=== PATIENT | female | born 1985 | race Caucasian/White ===

== ENCOUNTER 2023-11-04 07:02 | Emergency (ER) | payer OTHER ==
[~2023-11-04] VITALS: Ht 167.6 cm; Wt 74.4 kg
[2023-11-04 07:07] VITALS: BP 131/108; PULSE 77; RESP 18; TEMP 97.9; O2SAT 99
[2023-11-04 07:25] VITALS: O2SAT 100
[2023-11-04] MEDS: LIDOCAINE 5% 1 EA PATCH TP STA (07:41)
[2023-11-04] MEDS: methocarbamoL 500 MG TAB PO STA (07:42)
[2023-11-04] MEDS: ACETAMINOPHEN 325 MG TAB PO ONE (07:43)
[2023-11-04] MEDS: KETOROLAC 30 MG/ML VIAL IM ONE (07:44)
[2023-11-04] MEDS ORDERED: METH-1681 PO (09:27)
[2023-11-04] MEDS ORDERED: LID5T TP (09:27)
[2023-11-04] MEDS ORDERED: PRED20TA5 PO (09:27)
[2023-11-04] MEDS ORDERED: IBUP-2213 PO (09:27)
[2023-11-04] MEDS: predniSONE 20 MG TAB PO ONE (09:39)
== END 2023-11-04 09:41 | disposition home or self-care (01) ==
LOC: MED 07:02
DX: M54.17 Radiculopathy, lumbosacral region (principal); Z79.899 Other long term (current) drug therapy; Z79.1 Long term (current) use of non-steroidal anti-inflammatories (NSAID)
CPT/HCPCS: 81002; 81025; 96372; 99284; J1885; 99283

== ENCOUNTER 2024-03-30 07:58 | Emergency (ER) | payer OTHER ==
[~2024-03-30] VITALS: Ht 170.2 cm; Wt 76.0 kg
[~2024-03-30 07:58] MED LIST: IBUP-2213 PO; LID5T TP; METH-1681 PO; PRED20TA5 PO
[2024-03-30 08:07] VITALS: BP 102/41; PULSE 60; RESP 17; TEMP 97.8; O2SAT 98
[2024-03-30] MEDS: LIDOCAINE 5% 1 EA PATCH TP ONE (09:30)
[2024-03-30] MEDS: KETOROLAC 30 MG/ML VIAL IM ONE (09:31)
[2024-03-30 09:34] LABS: BILIRUBIN,URINE NEGATIVE (NEGATIVE); COLOR,URINE YELLOW (YELLOW); LEUKOCYTE ESTERASE ,URINE NEGATIVE (NEGATIVE); NITRITE, URINE NEGATIVE (NEGATIVE); PROTEIN,URINE TRACE (NEGATIVE); UGLUCOSE NEGATIVE (NEGATIVE); UROBILINOGEN,URINE 0.2 EU/dL (0.2 - 1)
[2024-03-30 09:43] LABS: CALCIUM OXALATE CRYSTALS,UR 0-10 /HPF (None Seen); MUCUS,URINE 1+ /LPF (None Seen); WBC,URINE 0-5 /HPF (0-5)
[2024-03-30 09:44] LABS: APPEARANCE,URINE HAZY (CLEAR); BACTERIA,URINE FEW /HPF (None Seen)
[2024-03-30 09:45] LABS: BLOOD, URINE 2+ (NEGATIVE)
[2024-03-30] MEDS ORDERED: IBUP-2213 PO (10:17)
[2024-03-30] MEDS ORDERED: CYCL-711 PO (10:17)
[2024-03-30] MEDS ORDERED: LID5T TP (10:17)
[2024-03-30 10:33] VITALS: BP 102/60
== END 2024-03-30 10:33 | disposition home or self-care (01) ==
LOC: MED 07:58
DX: S39.012A Strain of muscle, fascia and tendon of lower back, initial encounter (principal); M54.41 Lumbago with sciatica, right side; Z79.899 Other long term (current) drug therapy; X58.XXXA Exposure to other specified factors, initial encounter; Y92.89 Other specified places as the place of occurrence of the external cause; Y93.89 Activity, other specified; Y99.8 Other external cause status
CPT/HCPCS: 81001; 81025; 96372; 99283; J1885